=== PATIENT | male | born 1965 | race African-American/Black ===

== ENCOUNTER 2018-07-15 17:27 | Emergency (ER) | payer OTHER ==
[~2018-07-15] VITALS: Ht 190.5 cm; Wt 91.0 kg
[2018-07-15] MEDS ORDERED: KETOROLAC 60MG/2ML VIAL IM ONE (21:30)
[2018-07-15 22:31] VITALS: BP 126/82
== END 2018-07-15 22:41 | disposition home or self-care (01) ==
LOC: ER 17:38
DX: M54.32 Sciatica, left side (principal); M79.605 Pain in left leg; I10 Essential (primary) hypertension; H26.9 Unspecified cataract; F17.200 Nicotine dependence, unspecified, uncomplicated
CPT/HCPCS: 96372; 99283; J1885; Z7610

== ENCOUNTER 2018-08-22 13:49 | Emergency (ER) | payer OTHER ==
[~2018-08-22] VITALS: Ht 182.9 cm; Wt 89.0 kg
[2018-08-22] MEDS ORDERED: IBUPROFEN 600MG TABLET PO ONE (15:45)
[2018-08-22 16:01] LABS: CLARITY URINE CLEAR (CLEAR); COLOR URINE DARK YELLOW (YELLOW); KETONES URINE TRACE (NEGATIVE); LEUKOCYTE ESTERASE URINE NEGATIVE (NEGATIVE); NITRITE URINE NEGATIVE (NEGATIVE); OCCULT BLOOD URINE NEGATIVE (NEGATIVE); PROTEIN URINE NEGATIVE (NEGATIVE); SPECIFIC GRAVITY URINE 1.025 (1.005-1.030)
[2018-08-22] MEDS ORDERED: HYDROCODONE/ACETAMINOPHEN 5/325MG TABLET PO ONE (17:45)
[2018-08-22 17:47] VITALS: BP 105/66
[2018-08-27 04:20] LABS: CHLAMYDIA TRACHOMATIS NAA Negative (Negative); NEISSERIA GONORRHOEAE NAA Negative (Negative)
== END 2018-08-22 17:50 | disposition home or self-care (01) ==
LOC: ER 13:49
DX: N48.1 Balanitis (principal); F12.10 Cannabis abuse, uncomplicated; Z98.890 Other specified postprocedural states
CPT/HCPCS: 76870; 82962; 87491; 87591; 93976; 99284

== ENCOUNTER 2018-08-29 21:33 | Emergency (ER) | payer OTHER ==
[~2018-08-29] VITALS: Ht 190.5 cm; Wt 89.0 kg
[2018-08-29 23:54] VITALS: BP 124/77
[2018-08-30] MEDS ORDERED: IBUPROFEN 600MG TABLET PO STA (00:09)
[2018-08-30] MEDS ORDERED: LIDOCAINE HCL/PF 1% 10 MG/ML 5ML VIAL IJ ONE (00:15)
[2018-08-30] MEDS ORDERED: BACITRACIN ZINC OINT UDPKT TOP ONE (00:15)
[2018-08-30] MEDS ORDERED: TETANUS, DIPHTHERIA, PERTUSSIS VAC/PF 0.5ML (>7YR OLD) IM ONE (00:15)
== END 2018-08-30 02:10 | disposition home or self-care (01) ==
LOC: ER 21:33
DX: L03.011 Cellulitis of right finger (principal); F17.200 Nicotine dependence, unspecified, uncomplicated; F12.10 Cannabis abuse, uncomplicated; Z98.890 Other specified postprocedural states
CPT/HCPCS: 90471; 90715; 99283; J3490; Z7610

== ENCOUNTER 2018-11-05 22:34 | Emergency (ER) | payer OTHER ==
[~2018-11-05] VITALS: Ht 182.9 cm; Wt 88.0 kg
[2018-11-06] MEDS ORDERED: KETOROLAC 30MG/ML VIAL IM ONE (01:00)
[2018-11-06 01:29] VITALS: BP 134/91
== END 2018-11-06 01:30 | disposition home or self-care (01) ==
LOC: ER 22:34
DX: M54.5 Low back pain (principal); R51 Headache; V49.59XA Passenger injured in collision with other motor vehicles in traffic accident, initial encounter; Y93.89 Activity, other specified; Y92.89 Other specified places as the place of occurrence of the external cause; Y99.8 Other external cause status; F17.200 Nicotine dependence, unspecified, uncomplicated; F12.10 Cannabis abuse, uncomplicated; D64.9 Anemia, unspecified; I10 Essential (primary) hypertension; H40.9 Unspecified glaucoma
CPT/HCPCS: 96372; 99283; J1885

== ENCOUNTER 2019-06-04 10:18 | Emergency (ER) | payer OTHER ==
[~2019-06-04] VITALS: Ht 190.5 cm; Wt 83.0 kg
[2019-06-04 13:37] VITALS: BP 128/89
== END 2019-06-04 19:58 | disposition left against medical advice (07) ==
LOC: ER 10:18
DX: R51 Headache (principal); Z53.21 Procedure and treatment not carried out due to patient leaving prior to being seen by health care provider

== ENCOUNTER 2021-02-24 09:24 | Emergency (ER) | payer OTHER ==
[~2021-02-24] VITALS: Ht 190.5 cm; Wt 91.0 kg
[2021-02-24 10:08] VITALS: BP 114/75
[2021-02-24] MEDS ORDERED: METRONIDAZOLE 500MG TABLET PO STA (10:34)
[2021-02-24] MEDS ORDERED: DOXYCYCLINE HYCLATE 100MG CAPSULE PO STA (10:34)
[2021-02-24] MEDS ORDERED: DOXY100T2 MT (10:39)
[2021-02-24] MEDS ORDERED: CEFTRIAXONE SODIUM 500 MG/VIAL IM ONE (10:45)
[2021-02-28 04:07] LABS: NEISSERIA GONORRHOEAE NAA Negative (Negative)
== END 2021-02-24 10:55 | disposition home or self-care (01) ==
LOC: ER 09:53
DX: R30.0 Dysuria (principal); Z20.2 Contact with and (suspected) exposure to infections with a predominantly sexual mode of transmission
CPT/HCPCS: 87491; 87591; 96372; 99283; J0696